=== PATIENT | female | born 1950 | race Caucasian/White ===

== ENCOUNTER → 2020-05-26 09:31 | Outpatient (BNVA) | payer MEDICARE, OTHER, SELFPAY | PROVIDERS: PCP Internal Medicine; Referring Provider Internal Medicine; Visit Provider Surgery | DX: K43.9 Ventral hernia without obstruction or gangrene (principal) | CPT/HCPCS: 99204 ==

== ENCOUNTER 2020-07-15 06:15 | Day surgery (SDC) | payer MEDICARE, OTHER, SELFPAY ==
[2020-07-07 20:47] VITALS: BMI 43.1
--- NOTE | 2020-07-14 10:22 | HO.ANESPROP2 ---
Documented by User: Rupal Diaz 07/14/20 10:25 HPI - Anesthesia Eval Consult details Narrative: 69yo F for Hernia Repair Ventral *Pt requesting MAC* PMFSH Past Medical History Medical History Glaucoma Ventral hernia Family History Family History Mother History of liver cancer Paternal Aunt History of uterine cancer Surgical History Surgical History History of colonoscopy History of eye surgery History of hysterectomy History of meniscectomy of left knee History of nasal surgery Social History Social History Alcohol intake: never Smoking Status: Former smoker Smoking Quit Date: 1979 Use of substances other than those prescribed or required for medical reasons: No Advance Directives: Yes Advance Directives Information Provided: Yes Advance Directives on File: No Advance Directives Date on File: 08/23/19 Meds Allergies Allergy/AdvReac Type Severity Reaction Status Date / Time levofloxacin [From Levaquin] Allergy Severe muscle pain Verified 07/15/20 06:35 azithromycin AdvReac Severe Anaphylaxis Verified 07/15/20 06:35 doxycycline [DOXYCYCLINE] AdvReac Unknown DIARRHEA Verified 07/15/20 06:35 Home Medications Medication Instructions Recorded Confirmed Type estradiol 0.5 applic VAGINAL 2XW 05/26/20 07/15/20 History timolol maleate 0.5 % eye drops 2 drp OPHTHALMIC (EYE) BID ml 05/26/20 07/15/20 History cholecalciferol (vitamin D3) 10 mcg PO DAILY 07/07/20 07/15/20 History [Vitamin D3] magnesium citrate 100 mg PO DAILY 07/07/20 07/15/20 History vitamin B complex 1 cap PO DAILY 07/07/20 07/15/20 History Exam Exam Date and Time: July 14, 2020 1022 Height,Weight and Vital Signs: Height 5 ft 4 in Weight 114 kg Pertinent Lab Results Pertinent Lab Results: Laboratory Tests 01/23/20 06:30 Hgb Hct Sodium 142 Potassium 4.3 Chloride 106 BUN 15 Creatinine 0.75 Assessment and Plan Assessment Anesthesia Assessment: Chart Reviewed Documented by User: Anant Garcia 07/15/20 07:31 [facility] Past Medical History Medical History Glaucoma Ventral hernia Family History Family History Mother History of liver cancer Paternal Aunt History of uterine cancer Surgical History Surgical History History of colonoscopy History of eye surgery History of hysterectomy History of meniscectomy of left knee History of nasal surgery Social History Social History Alcohol intake: never Smoking Status: Former smoker Smoking Quit Date: 1979 Use of substances other than those prescribed or required for medical reasons: No Advance Directives: Yes Advance Directives Information Provided: Yes Advance Directives on File: No Advance Directives Date on File: 08/23/19 Meds Allergies Allergy/AdvReac Type Severity Reaction Status Date / Time levofloxacin [From Levaquin] Allergy Severe muscle pain Verified 07/15/20 06:35 azithromycin AdvReac Severe Anaphylaxis Verified 07/15/20 06:35 doxycycline [DOXYCYCLINE] AdvReac Unknown DIARRHEA Verified 07/15/20 06:35 Home Medications Medication Instructions Recorded Confirmed Type estradiol 0.5 applic VAGINAL 2XW 05/26/20 07/15/20 History timolol maleate 0.5 % eye drops 2 drp OPHTHALMIC (EYE) BID ml 05/26/20 07/15/20 History cholecalciferol (vitamin D3) 10 mcg PO DAILY 07/07/20 07/15/20 History [Vitamin D3] magnesium citrate 100 mg PO DAILY 07/07/20 07/15/20 History vitamin B complex 1 cap PO DAILY 07/07/20 07/15/20 History Exam Airway Mallampati Class: II TM Dist: >3cm Neck ROM: Full Loose/Missing/Broken Teeth: No Heart: [id number] Lungs: cta b/l Assessment and Plan Assessment Anesthesia Assessment: Anesthesia Plan Discussed, PAT Visit and Chart Reviewed Final Anesthetic Review NPO: Yes ASA Class: II Final Preanesthetic Review: No Changes in Pt Med Stat, Meds/Allgs Chart Reviewed, Consent Obtained/Reviewed and Anes Risks/Benef Reviewed Patient Risk: Low Procedure Risk: Low Assessment/Block/Sedation in SS: Assess/Block/Sedation-SS Anesthetic Plan Anesthetic Plan: MAC: Disposition: Standard PACU
[2020-07-15 06:44] VITALS: BP 135/60; PULSE 62; RESP 16; TEMP 36.6; O2SAT 99
[2020-07-15] MEDS: Lactated Ringers 1,000 ML 100 ML IVCONT (07:01)
[2020-07-15] MEDS: ceFAZolin Sodium/Dextrose,Iso 2 GM/50 ML PIGGYBACK IV (07:02)
--- NOTE | 2020-07-15 07:14 | MHC.SHP ---
Pre-Procedural Eval Section B Chief Complaint: Ventral Hernia Details of Present Illness: hernia epigastric area, painful Relevant Family History (Specify if Yes): No Relevant Social History: None Present Medications: see Short Stay Collaborative assessment Medical History: No relevant PMH History of Previous Operations: No relevant previous surgery Allergies: Allergies Allergy/AdvReac Type Severity Reaction Status Date / Time levofloxacin [From Levaquin] Allergy Severe muscle pain Verified 07/15/20 06:35 azithromycin AdvReac Severe Anaphylaxis Verified 07/15/20 06:35 doxycycline [DOXYCYCLINE] AdvReac Unknown DIARRHEA Verified 07/15/20 06:35 Review of Systems Sugical H&P ROS: Negative: Constitution, Cardiovascular, Respiratory, Neurological, Psychiatric, Hem-Onc, Allergic/Immunologic, Genitourinary, Musculoskeletal, Integumentary, Endocrine and Eyes/Ears/Nose/Throat and Yes, Specify: Gastrointestinal (fullness after eating, pain) Exam Surgical H&P Exam: Normal: HEENT, Normal: Heart, Normal: Lungs, Normal: Extremities, Normal: Abdomen, Normal: Skin and Normal: Neurological Plan Diagnosis/Plan: Unchanged Patient has been examined and remains a candidate for the planned procedure
[2020-07-15 07:28] VITALS: BMI 19.3
[2020-07-15 08:10] VITALS: BP 109/55; PULSE 56; RESP 14; TEMP 36.3; O2SAT 100
--- NOTE | 2020-07-15 08:18 | W.PM.OPN ---
Operative Note Operative Note Date of Service: 07/15/20 Narrative: Preoperative diagnosis: ventral hernia Postoperative diagnosis: Soft tissue mass abdominal wall Procedure: Excision of soft tissue mass abdominal wall Account Engineer: Mae Bonilla PA-C Anesthesia: Monitored anesthesia care with local Estimated blood loss: 2 cc Specimen: Soft tissue mass abdominal wall Immediate complications: none Indications: Ms. Jones is a 69-year-old who has a several month history of a palpable fullness in the upper midline and extended to the right. She reports pain associated with the mass with both activity and eating. Examination is consistent with a small ventral hernia. Findings: The fascia was intact. A soft tissue mass consistent with a lipoma was identified and excised. Procedure in detail: Patient in the supine position after obtaining adequate sedation, time-out procedure was performed. 2 g of cefazolin were infused for antibiotic prophylaxis. A combination of 0.2375% Marcaine with epinephrine and 2% lidocaine was employed for local anesthetic. A line for transverse incision was marked in the epigastric area extending across the midline and overlying the soft tissue mass. Skin and subcutaneous tissues were infiltrated with local anesthetic an additional anesthetic infiltration was carried out as needed throughout the procedure. A transverse incision was made and was carried into the subcutaneous tissues. Bleeding was controlled using the electrosurgical pencil. The soft tissue mass was identified and partially dissected free. No underlying hernia defect was identified in the expected location in the midline. The mass extended toward the right. The skin incision was extended for better visualization. The mass was dissected free circumferentially and was excised. There was no hernia identified. Careful inspection of the fascia of the abdominal wall was carried out. The absence of hernia was confirmed. Additional anesthetic infiltration was done and the wound was irrigated with saline solution. There was no bleeding. Subcutaneous tissues were closed with interrupted sutures of 3 0 Polysorb and skin was closed with a running subcuticular suture of 4-0 Polysorb. Steri-Strips and dry sterile dressings were applied. She tolerated the procedure well and was transported to the recovery room in stable condition. Sponge and sharp counts were correct. There were no immediate complications.
[2020-07-15 08:25] VITALS: BP 131/54; PULSE 52; RESP 16; O2SAT 100
[2020-07-15 08:40] VITALS: BP 130/57; PULSE 49; RESP 16; O2SAT 100
== END 2020-07-15 09:04 | disposition home or self-care (01) ==
PROVIDERS: Surgery; PCP Internal Medicine; Visit Provider Anesthesiology
PROC: (CPT 22902; principal; 2020-07-15 07:30)
DX: D17.5 Benign lipomatous neoplasm of intra-abdominal organs (principal); Z79.899 Other long term (current) drug therapy
CPT/HCPCS: 22902; 88305; J0690; J2250; J3010

== ENCOUNTER → 2020-07-23 12:47 | Outpatient (BNVA) | payer MEDICARE, OTHER, SELFPAY | PROVIDERS: PCP Internal Medicine; Visit Provider Surgery | DX: D17.1 Benign lipomatous neoplasm of skin and subcutaneous tissue of trunk (principal); R10.13 Epigastric pain | CPT/HCPCS: 99212 ==

== ENCOUNTER 2020-08-06 09:48 | Outpatient (REF) | payer MEDICARE, OTHER, SELFPAY ==
--- NOTE | 2020-08-06 09:55 | US_ITS ---
EXAMINATION: US ABDOMEN COMPLETE CLINICAL INFORMATION: Epigastric pain. COMPARISON: None TECHNIQUE: Real-time imaging of the abdominal viscera. FINDINGS: PANCREAS: Normal. ABDOMINAL AORTA: The proximal, mid, and distal segments are normal in caliber. INFERIOR VENA CAVA: Visualized portions are normal. LIVER: Normal. The liver is normal in size. The liver contour is normal. Parenchymal echogenicity is normal. No focal hepatic lesion. There is no intrahepatic biliary duct dilatation seen. GALLBLADDER: The gallbladder is physiologically distended. Multiple mobile gallstones are present. No evidence of gallbladder wall thickening or pericholecystic fluid. The gallbladder wall thickness is 0.1 cm. COMMON BILE DUCT: Normal in caliber measuring 0.7 cm in diameter. RIGHT KIDNEY: There are 2 anechoic cysts seen. A lower pole cyst measures 1.3 x 1.1 x 1.2 cm and a upper pole cyst measures 0.8 x 0.7 x 0.8 cm. No hydronephrosis or renal calculi. The kidney measures 9.7 cm in maximum dimension. LEFT KIDNEY: There are 2 anechoic cysts seen. Upper pole cyst measures 1.3 x 1.0 x 1.3 cm. A midpole cyst measures 0.7 x 0.5 x 0.6 cm. No hydronephrosis or renal calculi. The kidney measures 10.1 cm in maximum dimension. SPLEEN: Normal. The spleen measures 8.7 cm in maximum dimension. FREE FLUID: None. US/US abdomen complete IMPRESSION: 1. Bilateral renal cysts. No echogenic renal calculi or hydronephrosis. 2. Multiple mobile echogenic gallstones. 3. The rest of the abdominal ultrasound is unremarkable.
== END 2020-08-06 09:49 | disposition home or self-care (01) ==
LOC: HO.US 09:48
PROVIDERS: Visit Provider Surgery
DX: R10.13 Epigastric pain (principal)
CPT/HCPCS: 76700

== ENCOUNTER → 2020-08-13 09:22 | Outpatient (BNVA) | payer MEDICARE, OTHER, SELFPAY | PROVIDERS: Visit Provider Surgery | DX: R10.13 Epigastric pain (principal); K80.10 Calculus of gallbladder with chronic cholecystitis without obstruction | CPT/HCPCS: 99212 ==

== ENCOUNTER 2020-09-02 06:14 | Day surgery (SDC) | payer MEDICARE, OTHER, SELFPAY ==
[2020-08-28 08:20] VITALS: BMI 19.5
--- NOTE | 2020-09-01 10:32 | HO.ANESPROP2 ---
Documented by User: Rupal Linnney 09/01/20 10:38 HPI - Anesthesia Eval Consult details Narrative: 69yo F for Cholecystectomy Laparoscopic PCP cleared s/p ventral hernia repair 07/14/20 with [facility] Past Medical History Medical History (Updated 08/13/20 @ 15:12 by Monica Fabian MD) Glaucoma Lipoma of abdominal wall Ventral hernia Family History Family History Mother History of liver cancer Paternal Aunt History of uterine cancer Surgical History Surgical History (Updated 08/28/20 @ 08:21 by Nina Spring) History of colonoscopy History of eye surgery History of hysterectomy History of meniscectomy of left knee History of nasal surgery Hx of ventral hernia repair Social History Social History Alcohol intake: never Smoking Status: Former smoker Use of substances other than those prescribed or required for medical reasons: No Advance Directives: Yes Advance Directives on File: Yes Advance Directives Date on File: 08/23/19 Meds Allergies Allergy/AdvReac Type Severity Reaction Status Date / Time levofloxacin [From Levaquin] Allergy Severe muscle pain Verified 07/23/20 12:56 azithromycin AdvReac Severe Anaphylaxis Verified 07/23/20 12:56 latex AdvReac Intermediate Rash Verified 09/02/20 06:22 doxycycline [DOXYCYCLINE] AdvReac Unknown DIARRHEA Verified 07/23/20 12:56 Home Medications Medication Instructions Recorded Confirmed Type estradiol 0.5 applic VAGINAL 2XW 05/26/20 08/28/20 History timolol maleate 0.5 % eye drops 2 drp OPHTHALMIC (EYE) BID ml 05/26/20 08/28/20 History cholecalciferol (vitamin D3) 10 mcg PO DAILY 07/07/20 08/28/20 History [Vitamin D3] magnesium citrate 100 mg PO DAILY 07/07/20 08/28/20 History vitamin B complex 1 cap PO DAILY 07/07/20 08/28/20 History Exam Exam Date and Time: September 01, 2020 1032 Height,Weight and Vital Signs: Height 5 ft 4 in Weight 51.71 kg Pertinent Lab Results Pertinent Lab Results: Laboratory Tests 01/23/20 06:30 Sodium 142 Potassium 4.3 Chloride 106 BUN 15 Creatinine 0.75 CBC and PT/INR WNL per PCP clearance note Narrative Narrative: EKG 08/2020: NSR (per PCP clearance note) Assessment and Plan Assessment Anesthesia Assessment: Chart Reviewed Documented by User: Linda Ellis 09/02/20 07:05 [facility] Past Medical History Medical History (Updated 08/13/20 @ 15:12 by Monica Fabian MD) Glaucoma Lipoma of abdominal wall Ventral hernia Family History Family History Mother History of liver cancer Paternal Aunt History of uterine cancer Surgical History Surgical History (Updated 08/28/20 @ 08:21 by Nina Spring) History of colonoscopy History of eye surgery History of hysterectomy History of meniscectomy of left knee History of nasal surgery Hx of ventral hernia repair Social History Social History Alcohol intake: never Smoking Status: Former smoker Use of substances other than those prescribed or required for medical reasons: No Advance Directives: Yes Advance Directives on File: Yes Advance Directives Date on File: 08/23/19 Meds Allergies Allergy/AdvReac Type Severity Reaction Status Date / Time levofloxacin [From Levaquin] Allergy Severe muscle pain Verified 07/23/20 12:56 azithromycin AdvReac Severe Anaphylaxis Verified 07/23/20 12:56 latex AdvReac Intermediate Rash Verified 09/02/20 06:22 doxycycline [DOXYCYCLINE] AdvReac Unknown DIARRHEA Verified 07/23/20 12:56 Home Medications Medication Instructions Recorded Confirmed Type estradiol 0.5 applic VAGINAL 2XW 05/26/20 08/28/20 History timolol maleate 0.5 % eye drops 2 drp OPHTHALMIC (EYE) BID ml 05/26/20 08/28/20 History cholecalciferol (vitamin D3) 10 mcg PO DAILY 07/07/20 08/28/20 History [Vitamin D3] magnesium citrate 100 mg PO DAILY 07/07/20 08/28/20 History vitamin B complex 1 cap PO DAILY 07/07/20 08/28/20 History Exam Airway Mallampati Class: I TM Dist: >3cm Neck ROM: Full Heart: RRr Lungs: CTA BL Assessment and Plan Assessment Anesthesia Assessment: Anesthesia Plan Discussed and Chart Reviewed Final Anesthetic Review NPO: Yes ASA Class: II Final Preanesthetic Review: Meds/Allgs Chart Reviewed and Consent Obtained/Reviewed Patient Risk: Intermediate Procedure Risk: Intermediate Anesthetic Plan Anesthetic Plan: GA Disposition: Standard PACU
[2020-09-02] VITALS (8 sets, daily range): BP systolic 124–144; BP diastolic 46–76; PULSE 55–66; RESP 16–17; TEMP 36.5; O2SAT 96–100
[2020-09-02] MEDS: Lactated Ringers 1,000 ML 100 ML IVCONT (06:50)
[2020-09-02] MEDS: Acetaminophen 325 MG TABLET 650 MG PO (06:51)
--- NOTE | 2020-09-02 07:28 | MHC.SHP ---
Pre-Procedural Eval Section A The patient is an INPATIENT: No Changes since office visit: Yes Patient answered all questions; No Cold of Flu in the past 2 weeks, No New Medical Problems and No Changes in Medication Section B Chief Complaint: epigastric pain,chronic calculous,cholecystitis Allergies: Allergies Allergy/AdvReac Type Severity Reaction Status Date / Time levofloxacin [From Levaquin] Allergy Severe muscle pain Verified 07/23/20 12:56 azithromycin AdvReac Severe Anaphylaxis Verified 07/23/20 12:56 latex AdvReac Intermediate Rash Verified 09/02/20 06:22 doxycycline [DOXYCYCLINE] AdvReac Unknown DIARRHEA Verified 07/23/20 12:56 Plan I have reviewed the history and physical and performed a pertinent physical examination on my patient. No changes have occurred unless specified.
--- NOTE | 2020-09-02 08:57 | W.PM.OPN ---
Operative Note Operative Note Date of Service: 09/02/20 Narrative: Preoperative diagnosis: Chronic calculous cholecystitis Postoperative diagnosis: Same Procedure: Laparoscopic cholecystectomy Performance Test Consultant: Mae Saldana PA-C Anesthesia: General endotracheal Specimen: Gallbladder Estimated blood loss: Less than 10 cc Immediate complications: None Indications: This is a 69-year-old female with recent history of postprandial epigastric pain. Ultrasound reveals gallstones. Procedure in detail: With the patient in the supine position after induction of adequate general anesthesia, time-out procedure was performed. 2 g of cefotetan were infused for antibiotic prophylaxis. Each trocar site was infiltrated with local anesthetic prior to making incisions. The abdomen was prepped with ChloraPrep and was draped sterilely. An infraumbilical incision was made and was carried down to the level of the fascia. The fascia was grasped in the midline with a Salvador clamp and holding sutures of 0 Polysorb were placed on either side. The Salvador was released and the fascia was split in the midline. Peritoneal cavity was entered and the Josie trocar was inserted and stabilized with the fascial sutures. The abdomen was insufflated with carbon dioxide to a pressure of 15 mm of mercury and the 0 degree 5 mm laparoscopic was inserted. The peritoneal cavity was visualized. The gallbladder did not appear inflamed but was was covered with a thin layer of omentum. Patient was placed in reverse Trendelenburg position and was rotated left side down. 5 mm trocars were placed just to the right of midline about a quarter of the way between the xiphoid and umbilicus and approximately the midclavicular and anterior axillary lines a few cm below the costal margin. Gallbladder was grasped along the fundus just below the anterior margin of the liver and was retracted cephalad. Adhesions between gallbladder and omentum were taken down with a combination gentle blunt and the Endo Shear dissection with the use of cautery as needed. No significant bleeding was encountered. The gallbladder was then grasped along the infundibulum and was retracted laterally. Dissection was begun on the infundibulum and was carried medially to expose the cystic duct gallbladder junction. The cystic artery was also identified running immediately anterior and superior to the cystic duct. These structures were dissected free separately. A small anterior branch of cystic artery was also identified and dissected free. The cystic duct was then doubly clipped just medial to the junction with the gallbladder, singly clipped at the junction with the gallbladder and divided between clips. The anterior branch of cystic artery and was doubly clipped on the patient's side, singly clipped on the gallbladder side and divided between clips. The gallbladder was then dissected free from the liver bed using the cautery hook. A posterior branch of artery was identified at about the midpoint of the fundus and also was divided between clips. Once the gallbladder was completely he of dissected free from the liver bed, the laparoscopic was removed and reinserted through the upper medial trocar. The specimen pouch was inserted through the Josie trocar and gallbladder was placed into the pouch. The pouch was closed and withdrawn along with the Josie. The Josie was then reinserted and the laparoscope was placed back through it. The operative field was visualized. Clips were intact on the cystic duct and cystic artery stumps. There is no evidence of bleeding. The area is copiously irrigated with saline solution and again inspected for bleeding. No bleeding was seen. Patient was returned to supine position. 5 mm trocars removed under direct vision. There was no bleeding from trocar sites. Insufflation was discontinued and gas was let us if peritoneal cavity. The Josie trocar was removed. Fascia has soft site was closed with [id number] suture of 0 Polysorb and a 2 holding sutures were tied to 1 another. Skin incisions were closed with subcuticular sutures of 4-0 Polysorb. Steri-Strips and dry sterile dressings were applied. She tolerated the procedure well and was transported to the recovery room in stable condition. There were no immediate complications.
--- NOTE | 2020-09-02 13:59 | HO.POSTANES ---
Post Anesthesia Evaluation Post Anesthesia Evaluation Vital Signs: Vital Signs Temp Pulse Resp BP Pulse Ox 09/02/20 09:55 59 17 142/46 H 98 09/02/20 09:40 58 16 135/71 99 09/02/20 09:25 55 16 134/76 99 09/02/20 09:10 63 16 144/66 H 99 09/02/20 09:05 62 16 136/56 L 98 09/02/20 09:00 66 16 130/58 L 96 09/02/20 08:55 97.7 F 64 16 134/60 96 09/02/20 06:40 97.7 F 66 16 124/66 100 Anesthesia: General Endotracheal-GETA Mental Status: Awake Pain Control: Satisfactory Nausea/Vomiting: None Hydration: Adequate Anesthesia-Related Issues: No Anes. Related Issues
== END 2020-09-02 11:25 | disposition home or self-care (01) ==
PROVIDERS: Visit Provider Surgery
PROC: 0FT44ZZ Resection of Gallbladder, Percutaneous Endoscopic Approach (ICD-10-PCS; CPT 47562; principal; 2020-09-02 07:30)
DX: K80.10 Calculus of gallbladder with chronic cholecystitis without obstruction (principal); K82.8 Other specified diseases of gallbladder; Z79.899 Other long term (current) drug therapy; Z88.1 Allergy status to other antibiotic agents; Z91.040 Latex allergy status
CPT/HCPCS: 47562; 88304; J1100; J2405; J3010

== ENCOUNTER → 2020-09-10 09:49 | Outpatient (BNVA) | payer MEDICARE, OTHER, SELFPAY | PROVIDERS: Visit Provider Surgery | DX: K80.10 Calculus of gallbladder with chronic cholecystitis without obstruction (principal) | CPT/HCPCS: 99212 ==

== ENCOUNTER → 2020-10-12 09:45 | Outpatient (BNVA) | payer MEDICARE, OTHER, SELFPAY | PROVIDERS: Visit Provider Surgery | DX: K80.10 Calculus of gallbladder with chronic cholecystitis without obstruction (principal) | CPT/HCPCS: 99212 ==

== ENCOUNTER 2021-03-31 07:55 | Outpatient (REF) | payer MEDICARE, OTHER, SELFPAY ==
--- NOTE | ~2021-03-31 | MM_ITS ---
EXAMINATION: MM SCREENING DIGITAL BREAST TOMOSYNTHESIS, BILATERAL CLINICAL INFORMATION: Screening. Asymptomatic. The lifetime risk of breast cancer based on the Tyrer-Cuzick Model is 2%. COMPARISON: Mammography: 03/24/2020, 12/04/2018, 11/21/2017 TECHNIQUE: Digital breast tomosynthesis is performed in both the craniocaudal and mediolateral oblique views along with computer-aided detection (CAD). Synthesized 2D images are generated from the tomosynthesis. FINDINGS: There are scattered areas of fibroglandular density (ACR BI-RADS breast composition Category b). There are no significant masses, abnormal calcifications, or other abnormalities. No developing density. The axilla and skin contours are unremarkable. No significant changes. MM/MM tomosynthesis screening BI IMPRESSION: No mammographic evidence of malignancy. ASSESSMENT: BI-RADS 1: Negative RECOMMENDATION: Routine annual mammography screening. This patient's information was entered into a reminder system with a target due date for their next mammogram.
--- NOTE | ~2021-03-31 | MM_ITS ---
EXAMINATION: BONE DENSITOMETRY CLINICAL INDICATION: Menopause. COMPARISON: Previous BD dated 12/04/2018 and baseline BD dated 04/10/2009. TECHNIQUE: Using a [employer] DXA System (software version: 13.1) manufactured by [employer], dual-energy x-ray absorptiometry was performed of the lumbar spine and left hip. The images are of good technical quality. Summary results are attached. FINDINGS: AP SPINE L1-L4: There is levocurvature lumbar spine and degenerative changes which may cause overestimation of lumbar bone mineral density. Current: BMD 1.071 g/cm2, Z-score 1.2, T-score -0.9, normal, 3.3% decrease from previous, 3.4% increase from baseline (<5% change is not significant). Prior: BMD 1.108 g/cm2. Baseline: BMD 1.036 g/cm2. LEFT FEMUR, NECK: Current: BMD 0.742 g/cm2, Z-score -0.1, T-score -2.1, osteopenia. Prior: BMD 0.742 g/cm2. Baseline: BMD 0.789 g/cm2. LEFT FEMUR, TOTAL: Current: BMD 0.786 g/cm2, Z-score 0.1, T-score -1.8, osteopenia, 3.8% decrease from previous, 9.0% decrease from baseline (<5% change is not significant). Prior: BMD 0.817 g/cm2. Baseline: BMD 0.864 g/cm2. IDENTIFIED RISK FACTORS: Height loss. Hysterectomy. Menopause. HISTORY OF FRACTURE: None listed. MEDICATIONS: Calcium supplement and/or multivitamin. Vitamin D. MM/XR DEXA axial skeleton IMPRESSION: 1. DIAGNOSIS: Osteopenia based on the lowest T-score value of -2.1 in the femoral neck applying World Health Organization criteria. 2. 10-YEAR FRACTURE RISK PREDICTION, FRAX: Major osteoporotic fracture (clinical spine, forearm, hip or shoulder) 11.7%. Hip fracture 2.8%. 3. Treatment Recommendations: NOF guidelines recommend consideration for treatment in postmenopausal women and men age 50 and older presenting with the following: -A hip or vertebral (clinical or morphometric) fracture. -T-score less than or equal to -2.5 at the femoral neck or spine after appropriate evaluation to exclude secondary causes. -Low bone mass at the hip or spine and a 10-year fracture probability by FRAX of greater than or equal to 3% for hip fracture or greater than or equal to 20% for major osteoporotic fracture based on the [place] adapted WHO algorithm. 4. Other Recommendations: All treatment decisions require clinical judgment and consideration of individual patient factors, including patient preferences, comorbidities, previous drug use, risk factors not captured in the FRAX model (e.g. frailty, falls, vitamin D deficiency, increased bone turnover, interval significant decline in bone density) and possible under or overestimation of fracture risk by FRAX. Additional medical evaluation for secondary cause of low bone mineral density may be appropriate. FUTURE SCAN RECOMMENDATION: People with diagnosed cases of osteoporosis or at high risk for fracture should have regular bone mineral density tests. For patients eligible for Medicare, routine testing is allowed once every 2 years. The testing frequency can be increased to one year for patients who have rapidly progressing disease, those who are receiving or discontinuing medical therapy to restore bone mass, or have additional risk factors.
== END 2021-03-31 07:56 | disposition home or self-care (01) ==
LOC: HO.MAMMO 07:55
PROVIDERS: PCP Internal Medicine; Visit Provider Obstetrics & Gynecology
DX: Z12.31 Encounter for screening mammogram for malignant neoplasm of breast (principal); Z13.820 Encounter for screening for osteoporosis; M85.80 Other specified disorders of bone density and structure, unspecified site; Z78.0 Asymptomatic menopausal state; Z79.899 Other long term (current) drug therapy; Z98.890 Other specified postprocedural states
CPT/HCPCS: 77063; 77067; 77080

== ENCOUNTER 2021-07-09 10:18 | Outpatient (REF) | payer MEDICARE, OTHER, SELFPAY ==
[2021-07-09 10:33] LABS: MANUAL DIFF FLAG NO
[2021-07-09 10:54] LABS: Basophils Percent Auto 0.3 % (0-2); Eosinophils Absolute Auto 0.1 X10*3/uL (0.0-0.4); Eosinophils Percent Auto 1.3 % (0-4); Hematocrit 40.3 % (37.0-47.0); Hemoglobin 12.9 g/dl (12.0-16.0); Imm Gran Abs Auto 0.01 X10*3/uL (0.00-0.03); Imm Gran Pct Auto 0.1 % (0.0-0.4); Lymphocytes Absolute Auto 2.3 X10*3/uL (1.2-4.9); Lymphocytes Percent Auto 32.6 % (20-40); Mean Corpuscular Hemoglobin 29.1 pg (27.0-33.0); Mean Platelet Volume 10.6 fL (9.4-12.3); Monocytes Absolute Auto 0.5 X10*3/uL (0.1-1.2); Monocytes Percent Auto 7.6 % (2-11); Neutrophils Absolute Auto 4.2 x10*3/uL (2.0-8.3); Neutrophils Percent Auto 58.1 % (45-73); Platelet Count 281 X10*3/uL (160-400); Red Blood Count 4.43 X10*6/uL (4.20-5.50); Red Cell Distribution Width 13.4 % (11.0-16.0); White Blood Count 7.1 X10*3/uL (4.8-10.8)
[2021-07-09 11:46] LABS: Alanine Aminotransferase 18 U/L (0-31); Albumin Level 4.2 g/dL (3.5-5.0); Alkaline Phosphatase 75 U/L (39-117); Amylase 46 U/L (28-100); Aspartate Amino Transferase 22 U/L (5-31); Bilirubin Direct 0.4 mg/dL (0.0-0.5); Bilirubin Total 1.1 mg/dL (0.0-1.0); Lipase 17 U/L (8-78); Total Protein 6.9 g/dL (6.5-8.0)
== END 2021-07-09 10:19 | disposition home or self-care (01) ==
LOC: HO.LAB 10:18
PROVIDERS: PCP Internal Medicine; Visit Provider Internal Medicine
DX: R10.11 Right upper quadrant pain (principal)
CPT/HCPCS: 36415; 80076; 82150; 83690; 85025

== ENCOUNTER 2021-07-14 07:28 | Outpatient (REF) | payer MEDICARE, OTHER, SELFPAY ==
--- NOTE | ~2021-07-14 | US_ITS ---
EXAMINATION: US ABDOMEN COMPLETE CLINICAL INFORMATION: Right upper quadrant abdominal pain. COMPARISON: Ultrasound abdomen complete 08/06/2020. TECHNIQUE: Real-time imaging of the abdominal viscera. FINDINGS: PANCREAS: Normal. ABDOMINAL AORTA: There is mild atherosclerosis of abdominal aorta without aneurysmal dilatation. INFERIOR VENA CAVA: Visualized portions are normal. LIVER: Normal. The liver is normal in size. The liver contour is normal. Parenchymal echogenicity is normal. No focal hepatic lesion. There is no intrahepatic biliary duct dilatation seen. GALLBLADDER: Surgically absent. COMMON BILE DUCT: Normal in caliber measuring 0.6 cm in diameter. RIGHT KIDNEY: There is anechoic cyst midpole measuring 0.8 x 0.8 x 0.9 cm. An anechoic cyst and lower pole measuring 1.5 x 1.2 x 1.4 cm. No hydronephrosis or renal calculi. The kidney measures 10.1 cm in maximum dimension. LEFT KIDNEY: There is anechoic cyst in the lower pole measuring 1.4 x 1.2 x 1.2 cm. No hydronephrosis. No renal calculi or focal parenchymal lesions. The kidney measures 10.3 cm in maximum dimension. SPLEEN: Normal. The spleen measures 8.7 cm in maximum dimension. FREE FLUID: None. US/US abdomen complete IMPRESSION: 1. Bilateral renal cysts. No echogenic renal calculi or hydronephrosis. 2. Rest of the abdominal ultrasound is unremarkable.
== END 2021-07-14 07:29 | disposition home or self-care (01) ==
LOC: HO.US 07:28
PROVIDERS: PCP Internal Medicine; Visit Provider Internal Medicine
DX: R10.11 Right upper quadrant pain (principal)
CPT/HCPCS: 76700

== ENCOUNTER 2021-08-11 08:56 | Outpatient (REF) | payer MEDICARE, OTHER, SELFPAY ==
[2021-08-11 09:37] LABS: Blood Urea Nitrogen 14 mg/dL (9-16); Estimated Glomerular Filt Rate > 60
== END 2021-08-11 08:57 | disposition home or self-care (01) ==
LOC: HO.LAB 08:56
PROVIDERS: PCP Orthopaedic Surgery; Visit Provider Internal Medicine
DX: R10.10 Upper abdominal pain, unspecified (principal)
CPT/HCPCS: 36415; 82565; 84520

== ENCOUNTER 2021-08-23 07:44 | Outpatient (REF) | payer MEDICARE, OTHER, SELFPAY ==
--- NOTE | ~2021-08-23 | CT_ITS ---
EXAMINATION: CT ABDOMEN AND PELVIS WITH CONTRAST CLINICAL INFORMATION: Upper abdominal pain. COMPARISON: None TECHNIQUE: Multidetector volumetric images were obtained from the superior aspect of the liver through the pubic symphysis following administration 85 mL of Omnipaque 350 intravenous contrast. Sagittal and coronal reformatted images were obtained on the technologist's workstation. Oral contrast: No This CT examination was performed using dose optimization techniques as appropriate, variously including the following: *Automated exposure control *Adjustment of mA and/or kV according to patient size (this includes techniques or standardized protocols for targeted exams where dose is matched to indication/reason for exam; i.e. extremities or head) *Use of iterative reconstruction technique DLP: 230 mGy-cm FINDINGS: LUNG BASES: The visualized lung bases are unremarkable. LIVER, GALLBLADDER, AND BILIARY TREE: No hepatic abnormality. Status post cholecystectomy. PANCREAS: Unremarkable. SPLEEN: Unremarkable. ADRENAL GLANDS: Unremarkable. KIDNEYS AND URETERS: Multiple low-attenuation foci are seen in the kidneys bilaterally, some of which are too small to adequately characterize. A reimbursement representative cyst medially in the lower pole the right kidney measures 1.4 cm (image 34, series 4). BLADDER: Unremarkable. GASTROINTESTINAL TRACT: The stomach, small bowel and appendix are unremarkable. Mild to moderate stool seen within the colon distally to the rectum. ABDOMINAL WALL: No significant hernia is appreciated. LYMPH NODES: No lymphadenopathy. VASCULAR: Unremarkable. PELVIC VISCERA: Unremarkable. OSSEOUS STRUCTURES: Mild thoracolumbar levoscoliosis is seen with apex at L1-L2. Mild to moderate multilevel degenerative disc disease is seen most pronounced at L5-S1 without suspicious abnormality. CT/CT abdomen pelvis w con IMPRESSION: 1. No acute intra-abdominal/pelvic abnormality. 2. Multiple bilateral renal cysts demonstrate benign features. Some are too small likely characterize, but demonstrate overall benign features as well. 3. Mild to moderate colonic stool burden without acute abnormality.
[2021-08-23] MEDS: Barium Sulfate Oral (Mocha) 450 ML ORAL.SUSP 900 ML PO (10:21)
[2021-08-23] MEDS: iohexoL 350 MG/ML 100 ML INFUS..BTL IV (10:22)
== END 2021-08-23 07:45 | disposition home or self-care (01) ==
LOC: HO.CT 07:44
PROVIDERS: Visit Provider Internal Medicine
DX: R10.10 Upper abdominal pain, unspecified (principal)
CPT/HCPCS: 74177; Q9967

== ENCOUNTER 2022-04-06 07:38 | Outpatient (REF) | payer MEDICARE, OTHER, SELFPAY ==
--- NOTE | ~2022-04-06 | MM_ITS ---
EXAMINATION: MM SCREENING DIGITAL BREAST TOMOSYNTHESIS, BILATERAL CLINICAL INFORMATION: Screening. Asymptomatic. COMPARISON: Mammography: March 31, 2021 and studies dating back to October 15, 2011 TECHNIQUE: Digital breast tomosynthesis is performed in both the craniocaudal and mediolateral oblique views along with computer-aided detection (CAD). Synthesized 2D images are generated from the tomosynthesis. FINDINGS: There are scattered areas of fibroglandular density (ACR BI-RADS breast composition Category b). There are no significant masses, abnormal calcifications, or other abnormalities. MM/MM tomosynthesis screening BI IMPRESSION: No significant changes from prior exam. ASSESSMENT: BI-RADS 1: Negative RECOMMENDATION: Routine annual mammography screening. This patient's information was entered into a reminder system with a target due date for their next mammogram.
== END 2022-04-06 07:39 | disposition home or self-care (01) ==
LOC: HO.MAMMO 07:38
PROVIDERS: PCP Internal Medicine; Visit Provider Internal Medicine
DX: Z12.31 Encounter for screening mammogram for malignant neoplasm of breast (principal)
CPT/HCPCS: 77063; 77067

== ENCOUNTER 2022-07-04 09:09 | Day surgery (SDC) | payer MEDICARE, OTHER, SELFPAY ==
--- NOTE | 2022-07-01 13:48 | HO.ANESPROP2 ---
Documented by User: Ruapl Diaz NP 07/01/22 13:50 HPI - Anesthesia Eval Consult details Narrative: 71yo F for Upper Endoscopy PMFSH Active Problems Active Problems: All Active Problems (Updated 09/10/20 @ 13:50 by Monica Fabian MD) Epigastric pain (Acute) Chronic calculous cholecystitis (Acute) Ventral hernia (Acute) Past Medical History Medical History Glaucoma Lipoma of abdominal wall Ventral hernia Family History Family History Mother History of liver cancer Paternal Aunt History of uterine cancer Surgical History Surgical History History of colonoscopy History of eye surgery History of hysterectomy History of meniscectomy of left knee History of nasal surgery Hx of ventral hernia repair Status post right knee replacement (~2020) Social History Social History Household Members Other:: , lives alone Alcohol intake: never Patient Tobacco Use Status: Never used Tobacco Use of substances other than those prescribed or required for medical reasons: No Advance Directives: Yes Advance Directives on File: Yes Advance Directives Date on File: 08/23/19 Meds Allergies Allergy/AdvReac Type Severity Reaction Status Date / Time levofloxacin [From Levaquin] Allergy Severe muscle pain Verified 10/12/20 09:57 azithromycin AdvReac Severe Anaphylaxis Verified 10/12/20 09:57 latex AdvReac Intermediate Rash Verified 10/12/20 09:57 doxycycline [DOXYCYCLINE] AdvReac Unknown DIARRHEA Verified 10/12/20 09:57 Home Medications Medication Instructions Recorded Confirmed Last Taken Type estradiol 0.01% (0.1 mg/gram) 0.5 applic vaginal 2XW 05/26/20 08/28/20 Unknown History vaginal cream Vitamin D3 07/04/22 Unknown History magnesium citrate 07/04/22 06/30/22 History multivitamin 07/04/22 07/04/22 Unknown History vitamin B complex 07/04/22 07/03/22 History Exam Exam Date and Time: July 01, 2022 1348 Assessment and Plan Assessment Anesthesia Assessment: Chart Reviewed Documented by User: Sabino Huggins MD 07/04/22 10:20 [facility] Past Medical History Medical History Glaucoma Lipoma of abdominal wall Ventral hernia Family History Family History Mother History of liver cancer Paternal Aunt History of uterine cancer Family history of problems with anesthesia: No Surgical History Surgical History History of colonoscopy History of eye surgery History of hysterectomy History of meniscectomy of left knee History of nasal surgery Hx of ventral hernia repair Status post right knee replacement (~2020) History of Problems with Anesthesia: No Social History Social History Household Members Other:: , lives alone Alcohol intake: never Patient Tobacco Use Status: Never used Tobacco Use of substances other than those prescribed or required for medical reasons: No Advance Directives: Yes Advance Directives on File: Yes Advance Directives Date on File: 08/23/19 Meds Allergies Allergy/AdvReac Type Severity Reaction Status Date / Time levofloxacin [From Levaquin] Allergy Severe muscle pain Verified 10/12/20 09:57 azithromycin AdvReac Severe Anaphylaxis Verified 10/12/20 09:57 latex AdvReac Intermediate Rash Verified 10/12/20 09:57 doxycycline [DOXYCYCLINE] AdvReac Unknown DIARRHEA Verified 10/12/20 09:57 Home Medications Medication Instructions Recorded Confirmed Last Taken Type estradiol 0.01% (0.1 mg/gram) 0.5 applic vaginal 2XW 05/26/20 08/28/20 Unknown History vaginal cream Vitamin D3 07/04/22 Unknown History magnesium citrate 07/04/22 06/30/22 History multivitamin 07/04/22 07/04/22 Unknown History vitamin B complex 07/04/22 07/03/22 History Exam Airway Mallampati Class: II TM Dist: >3cm Neck ROM: Full Assessment and Plan Assessment Anesthesia Assessment: Anesthesia Plan Discussed Final Anesthetic Review Family History of Problems with Anesthesia: No History of Problems with Anesthesia: No NPO: Yes ASA Class: II Final Preanesthetic Review: No Changes in Pt Med Stat, Meds/Allgs Chart Reviewed, Consent Obtained/Reviewed and Anes Risks/Benef Reviewed Patient Risk: Low Procedure Risk: Low Anesthetic Plan Anesthetic Plan: MAC: Disposition: Standard PACU
[2022-07-04 09:38] VITALS: BP 150/83; PULSE 81; RESP 18; TEMP 36.4; O2SAT 97; BMI 20.4
[2022-07-04] MEDS: Lactated Ringers 1,000 ML 100 ML IVCONT (10:11)
[2022-07-04 10:41] VITALS: PULSE 87; RESP 16; TEMP 36.3; O2SAT 100
--- NOTE | 2022-07-04 10:44 | PM.OP ---
Brief Operative Note Date of Service: 07/04/22 Pre-op diagnosis: Abdominal discomfort Post-op diagnosis: other (Hiatal hernia, GERD) Procedure: EGD with biopsies Surgeon: Jimmie Charles Anesthesia: MAC Was an Damage Inside Adjuster used for this Procedure?: No Estimated blood loss (mL): 2.0 Pathology: other (A. Gastric antrum B. EG Junction at 38cm) Condition: stable Disposition: PACU
[2022-07-04 10:56] VITALS: BP 107/49; PULSE 72; RESP 16; TEMP 36.9; O2SAT 100
[2022-07-04 11:11] VITALS: BP 107/49; PULSE 78; RESP 16; TEMP 36.9; O2SAT 100
--- NOTE | 2022-07-04 11:48 | OP_ITS ---
SURGEON: Jimmie Charles MD INDICATIONS: The patient presents for evaluation of abdominal discomfort and reflux. Full consent has been obtained from her for this, including risks of bleeding and perforation. PREOPERATIVE DIAGNOSIS: POSTOPERATIVE DIAGNOSIS: PROCEDURE PERFORMED: Esophagogastroduodenoscopy with biopsies. ESTIMATED BLOOD LOSS: COMPLICATIONS: ANESTHESIA: Monitored anesthesia care. ASSISTANTS: SPECIMENS: PREOPERATIVE DIAGNOSES: Gastroesophageal reflux and abdominal discomfort. POSTOPERATIVE DIAGNOSES: Gastroesophageal reflux and abdominal discomfort, small hiatal hernia, rule out gastritis and Helicobacter pylori. DESCRIPTION OF PROCEDURE: The patient was placed in the left lateral decubitus position. The Olympus video gastroscope was passed in the posterior oropharynx and upper esophagus under direct vision. The scope was passed slowly to the distal esophagus. The gastroesophageal junction appeared at 38 cm. There was some slight irregularity, but no evidence of any esophagitis nor any definitive evidence of Escobar mucosa. There was a small hiatal hernia. The scope was advanced to the pylorus, and the duodenum was cannulated to the descending portion. The duodenum including the bulb appeared normal without mass or ulceration. The scope was withdrawn back into the stomach. The gastric antrum had some areas of erythema, but no erosions or ulceration. There was good peristalsis. The scope was retroflexed visualizing the proximal stomach carefully, which appeared normal, without any sign of mass or ulceration. The scope was straightened. Biopsies were obtained from the gastric antrum. The scope was withdrawn back to the esophagus. Biopsies were obtained at the EG junction at 38 cm. Proximal to this, the esophageal mucosa appeared normal. The scope was withdrawn from the patient. She tolerated the procedure well and was returned to the recovery area in stable condition. IMPRESSION: 1. Small hiatal hernia, gastroesophageal reflux. 2. Rule out gastritis and/or H pylori. PLAN: The results of the biopsies will be checked. At this point, she is not using any medication for her stomach, and I would continue to observe her in this regard. She has already had a negative CT scan and negative ultrasound of the abdomen. If things are stable, she will see me on a p.r.n. basis and undergo a followup colonoscopy in 2023 for further screening. Even if H.pylori is present on the gastric biopsies I would hold off on treating that as she has no history of ulcer disease and is presently asymptomatic. MD ABDIAS Montoya/CURTIS / [id number] ADRIANNE
== END 2022-07-04 11:54 | disposition home or self-care (01) ==
PROVIDERS: PCP Internal Medicine; Visit Provider Internal Medicine
PROC: 0DJ08ZZ Inspection of Upper Intestinal Tract, Via Natural or Artificial Opening Endoscopic (ICD-10-PCS; CPT 43235; principal; 2022-07-04 10:30)
DX: R10.13 Epigastric pain (principal); K29.50 Unspecified chronic gastritis without bleeding; B96.81 Helicobacter pylori [H. pylori] as the cause of diseases classified elsewhere; K21.9 Gastro-esophageal reflux disease without esophagitis; K44.9 Diaphragmatic hernia without obstruction or gangrene; Z91.040 Latex allergy status; Z88.1 Allergy status to other antibiotic agents
CPT/HCPCS: 43239; 88305; 88342

== ENCOUNTER 2023-04-20 07:44 | Outpatient (REF) | payer MEDICARE, OTHER, SELFPAY ==
--- NOTE | ~2023-04-20 | MM_ITS ---
EXAMINATION: MM SCREENING DIGITAL BREAST TOMOSYNTHESIS, BILATERAL CLINICAL INFORMATION: Screening. Asymptomatic. COMPARISON: Mammography: 03/31/2021, 04/06/2022, 03/24/2020, 12/04/2018, 11/21/2017 TECHNIQUE: Digital breast tomosynthesis is performed in both the craniocaudal and mediolateral oblique views along with computer-aided detection (CAD). Synthesized 2D images are generated from the tomosynthesis. FINDINGS: There are scattered areas of fibroglandular density (ACR BI-RADS breast composition Category b). There are no suspicious masses, suspicious grouped calcifications, or areas of architectural distortion. The parenchymal pattern is stable from prior exams. MM/MM tomosynthesis screening BI IMPRESSION: No mammographic evidence of malignancy. ASSESSMENT: BI-RADS BI-RADS 1 - Negative RECOMMENDATION: Routine annual mammography screening. 1 year F/U This examination should not preclude the clinical evaluation of a suspicious palpable abnormality. This patient's information was entered into a reminder system with a target due date for their next mammogram.
--- NOTE | ~2023-04-20 | MM_ITS ---
EXAMINATION: BONE DENSITOMETRY CLINICAL INDICATION: Asymptomatic menopausal state. COMPARISON: Previous BD dated 03/31/2021 and baseline BD dated 04/10/2009. TECHNIQUE: Using a [employer] Solar Concentrator DXA System (software version: 13.1) manufactured by [employer], dual-energy x-ray absorptiometry was performed of the lumbar spine and left hip. The images are of good technical quality. Summary results are attached. FINDINGS: LEFT FEMUR, NECK: Current: BMD 0.755 g/cm2, Z-score 0.0, T-score -2.0, osteopenia. Prior: BMD 0.742 g/cm2. Baseline: BMD 0.789 g/cm2. LEFT FEMUR, TOTAL: Current: BMD 0.804 g/cm2, Z-score 0.3, T-score -1.6, osteopenia, 2.3% increase from previous, 6.9% decrease from baseline (<5% change is not significant). Prior: BMD 0.786 g/cm2. Baseline: BMD 0.864 g/cm2. AP SPINE L1-L4: Current: BMD 1.083 g/cm2, Z-score 1.2, T-score -0.8, normal, 1.1% increase from previous, 4.5% increase from baseline (<5% change is not significant). Prior: BMD 1.071 g/cm2. Baseline: BMD 1.036 g/cm2. IDENTIFIED RISK FACTORS: Height loss, menopause, hysterectomy. HISTORY OF FRACTURE: None listed. MEDICATIONS: Calcium supplements or multivitamin, vitamin D, ERT/SERMS. MM/XR DEXA axial skeleton IMPRESSION: 1. DIAGNOSIS: Osteopenia based on the lowest T-score value of -2.0 in the femoral neck applying World Health Organization criteria. 2. 10-YEAR FRACTURE RISK PREDICTION, FRAX: Not performed in this patient on estrogen or bone building treatments. 3. Treatment Recommendations: NOF guidelines recommend consideration for treatment in postmenopausal women and men age 50 and older presenting with the following: -A hip or vertebral (clinical or morphometric) fracture. -T-score less than or equal to -2.5 at the femoral neck or spine after appropriate evaluation to exclude secondary causes. -Low bone mass at the hip or spine and a 10-year fracture probability by FRAX of greater than or equal to 3% for hip fracture or greater than or equal to 20% for major osteoporotic fracture based on the [place] adapted WHO algorithm. 4. Other Recommendations: All treatment decisions require clinical judgment and consideration of individual patient factors, including patient preferences, comorbidities, previous drug use, risk factors not captured in the FRAX model (e.g. frailty, falls, vitamin D deficiency, increased bone turnover, interval significant decline in bone density) and possible under or overestimation of fracture risk by FRAX. Additional medical evaluation for secondary cause of low bone mineral density may be appropriate. FUTURE SCAN RECOMMENDATION: People with diagnosed cases of osteoporosis or at high risk for fracture should have regular bone mineral density tests. For patients eligible for Medicare, routine testing is allowed once every 2 years. The testing frequency can be increased to one year for patients who have rapidly progressing disease, those who are receiving or discontinuing medical therapy to restore bone mass, or have additional risk factors.
== END 2023-04-20 07:45 | disposition home or self-care (01) ==
LOC: HO.MAMMO 07:44
PROVIDERS: PCP Internal Medicine; Visit Provider Obstetrics & Gynecology
DX: Z12.31 Encounter for screening mammogram for malignant neoplasm of breast (principal); Z13.820 Encounter for screening for osteoporosis; Z78.0 Asymptomatic menopausal state
CPT/HCPCS: 77063; 77067; 77080

== ENCOUNTER → 2023-04-20 08:15 | Outpatient (BNV) | payer MEDICARE, OTHER, SELFPAY | PROVIDERS: PCP Internal Medicine; Visit Provider Radiology Diagnostic Radiology | DX: Z12.31 Encounter for screening mammogram for malignant neoplasm of breast (principal) | CPT/HCPCS: 77063; 77067; 77080 ==

== ENCOUNTER 2024-04-25 07:51 | Outpatient (REF) | payer MEDICARE, OTHER, SELFPAY ==
--- NOTE | ~2024-04-25 | MM_ITS ---
EXAMINATION: MM SCREENING DIGITAL BREAST TOMOSYNTHESIS, BILATERAL CLINICAL INFORMATION: Screening. Asymptomatic. COMPARISON: Mammography: Comparison is made with available priors TECHNIQUE: Digital breast mammography with tomosynthesis is performed in both the craniocaudal and mediolateral oblique views along with computer-aided detection (CAD). FINDINGS: There are scattered areas of fibroglandular density (ACR BI-RADS breast composition Category b). There are no significant masses, abnormal calcifications, or other abnormalities. MM/MM tomosynthesis screening BI IMPRESSION: No mammographic evidence of malignancy. ASSESSMENT: BI-RADS BI-RADS 1 - Negative RECOMMENDATION: Routine annual mammography screening. 1 year F/U This examination should not preclude the clinical evaluation of a suspicious palpable abnormality. This patient's information was entered into a reminder system with a target due date for their next mammogram. Electronically signed by: Deena Paulino DO 05/08/2024 07:28 PM EDT
== END 2024-04-25 07:52 | disposition home or self-care (01) ==
LOC: HO.MAMMO 07:51
PROVIDERS: PCP Internal Medicine; Visit Provider Internal Medicine
DX: Z12.31 Encounter for screening mammogram for malignant neoplasm of breast (principal)
CPT/HCPCS: 77063; 77067

== ENCOUNTER → 2024-04-25 08:15 | Outpatient (BNV) | payer MEDICARE, OTHER, SELFPAY | PROVIDERS: PCP Internal Medicine; Visit Provider Internal Medicine | DX: Z12.31 Encounter for screening mammogram for malignant neoplasm of breast (principal) | CPT/HCPCS: 77063; 77067 ==